=== PATIENT | female | born 1985 | race American Indian/Alaskan Native ===

== ENCOUNTER 2020-04-03 11:07 | Emergency (ER) | payer MEDICAID ==
[2020-04-03] MEDS ORDERED: HALOPERIDOL LACTATE 5 MG/1 ML INJ IM STA (11:34)
[2020-04-03] MEDS ORDERED: diphenhydrAMINE 50 MG/ML VIAL IM ONE (11:34)
[2020-04-03] MEDS ORDERED: LORazepam 2 MG/ML VIAL IM STA (11:34)
--- NOTE | 2020-04-03 11:35 | Emergency Department Report ---
<JOSUE MAHAJAN - Last Filed: 04/03/20 19:05> ED General Adult HPI - General Chief complaint: Psych Stated complaint: BEHAVIORAL /PSYCH EPISODE Time Seen by Provider: 04/03/20 11:24 - Related Data Allergies Allergy/AdvReac Type Severity Reaction Status Date / Time red dye Allergy Swelling Verified 04/03/20 11:34 ED Course - Reevaluation(s) Reevaluation #3: 04/03/20 19:05 Nurse Jocy came to me to evaluate patient because now her lips are swollen at removing patient's mask. Aunt at the bedside and states that lips were not previously swollen. Patient did receive IM medications for sedation as noted in the chart. On examination patient appears to have superficial bite wounds to the inner upper lip as well as the inner lower lip with some mild blood noted on a cup when she was drinking water. Patient does not have any loose or missing teeth. There is not any active bleeding. There is not any tongue swelling or tongue laceration. There is not any posterior pharyngeal swelling, difficulty swallowing, or stridor. I suspect that patient's lips are swollen secondary to traumatic injury and accidental biting. Nurse instructed to continue to monitor. Patient is drinking water without difficulty, denies pain, and has no shortness of breath. ED Medical Decision Making - Lab Data Result diagrams: 04/03/20 11:42 04/03/20 11:42 ED Disposition Clinical Impression: Borderline developmental delay, Anemia, Behavior concern in adult Disposition: DC-01 TO HOME OR SELFCARE Condition: Good Referrals: [facility] [Other] - 3-5 Days <AVELINO MARIEE - Last Filed: 04/04/20 06:36> ED General Adult HPI - General PUI?: No Source: patient, family, EMS (Verbal report received from emergency medical services. EMS documentation not available at time of chart dictation ), RN notes reviewed, old records reviewed Mode of arrival: Ambulatory Limitations: Other (Developmental delay.) - History of Present Illness Initial comments: The patient was evaluated in the emergency department for symptoms described in the history of present illness. He/she was evaluated in the context of the global COVID-19 pandemic, which necessitated consideration that the patient might be at risk for infection with the virus that causes COVID-19. Institutional protocols and algorithms that pertain to the evaluation of patients at risk for COVID-19 are in a state of rapid change based on information released by regulatory bodies including the CDC and federal and state organizations. These policies and algorithms were followed during the patient's care in the emergency department. Please note that these policies, procedures and recommendations changed on a rapid basis. During the entire history and physical examination, I am professor of historical theology and escorted by nurse JOCY GRUBER Patient is a 34-year-old female who is not known to myself previously. The patient is accompanied by her aunt who provides most of the history. The patient has a history of developmental delay. She has an outpatient primary care doctor, therapist and psychiatrist. The patient is brought to the hospital by her aunt, who also serves as the patient's primary caregiver, for psychiatric evaluation. Patient has been somewhat anxious, agitated, behaving erratically, and not sleeping well. As per the aunt, no fever, no nausea, no vomiting, no urinary frequency, no cough, no exposure to Covid, no change in taste or smell, no access to guns or firearms, all medications at home are locked away, and there is no possibility of overdose. Patient herself is typically alert only to name, and requires assistance from the patient's aunt for assistance with activities of daily living, management of finances, etc. The patient is a poor historian, and not able to really elaborate on symptoms. It does not appear that the patient has had respite care or crisis evaluation recently. Patient disorganized, developmentally delayed, and is not able to describe the qualitative nature of her symptoms, exacerbating factors, relieving factors, or aggravating factors. Her aunt gave verbal consent for medication with haloperidol, Ativan and diphenhydramine to facilitate acquisition of time sensitive diagnostic tests, and calm the patient down, as she was markedly anxious and agitated here in the emergency room. -: days(s) Radiation: other Quality: other Consistency: other Improves with: other Worsens with: other Associated Symptoms: other ED Review of Systems ROS: Stated complaint: BEHAVIORAL /PSYCH EPISODE Other details as noted in HPI Comment: Review of systems as per aunt Constitutional: denies: fever Eyes: denies: eye discharge Respiratory: denies: cough Cardiovascular: denies: syncope Gastrointestinal: denies: nausea, vomiting, constipation Genitourinary: denies: dysuria Psychiatric: anxiety ED Past Medical Hx - Past Medical History Previous Medical History?: Yes Hx Psychiatric Treatment: Yes (borderline schizophrenia) Additional medical history: autism - Social History Smoking Status: Never Smoker Substance Use Type: None ED Physical Exam - General Limitations: Other (Disorganized behavior, agitation) General appearance: alert, anxious, in distress - Head Head exam: Present: atraumatic, normocephalic - Eye Eye exam: Present: normal appearance, PERRL, EOMI, other (Right-sided exotropic strabismus. Aunt reports this is chronic). Absent: nystagmus - ENT ENT exam: Present: normal exam, normal orophraynx, mucous membranes moist, normal external ear exam - Neck Neck exam: Present: normal inspection, full ROM. Absent: tenderness, meningismus - Respiratory Respiratory exam: Present: normal lung sounds bilaterally. Absent: respiratory distress, wheezes, rales, rhonchi, stridor, decreased breath sounds - Cardiovascular Cardiovascular Exam: Present: normal rhythm, tachycardia, normal heart sounds. Absent: systolic murmur, diastolic murmur, rubs, gallop - GI/Abdominal GI/Abdominal exam: Present: soft. Absent: distended, tenderness, guarding, rebound, rigid, pulsatile mass - Extremities Exam Extremities exam: Present: normal inspection, full ROM, other (2+ pulses noted in the bilateral upper and lower extremities. There is no palpable cord. negative Homans sign. Muscular compartments are soft. The pelvis is stable.). Absent: pedal edema, calf tenderness - Back Exam Back exam: Present: normal inspection, full ROM. Absent: tenderness, CVA ten derness (R), CVA tenderness (L), paraspinal tenderness, vertebral tenderness - Neurological Exam Neurological exam: Present: alert (Patient is alert to name. Patient will follow some, but not all commands.), other (There is no facial droop. The tongue is midline. The extraocular movements are intact bilaterally. 5 out of 5 strength in 4 extremities.) - Psychiatric Psychiatric exam: Present: anxious - Skin Skin exam: Present: warm, dry, intact, normal color. Absent: rash ED Course Vital Signs 04/03/20 04/03/20 04/03/20 11:21 11:45 11:55 Temperature 98.6 F Pulse Rate 121 H 113 H Respiratory 18 22 Rate Blood Pressure 164/102 129/86 O2 Sat by Pulse 100 100 100 Oximetry 04/03/20 04/03/20 04/03/20 12:00 13:00 14:00 Temperature Pulse Rate 105 H 102 H 101 H Respiratory 19 16 15 Rate Blood Pressure 133/81 109/57 109/58 O2 Sat by Pulse 98 100 98 Oximetry 04/03/20 04/03/20 04/03/20 15:00 16:00 17:00 Temperature Pulse Rate 99 H 127 H Respiratory 12 20 Rate Blood Pressure 125/76 119/70 O2 Sat by Pulse 100 100 Oximetry 04/03/20 04/03/20 18:00 19:00 Temperature Pulse Rate 108 H 114 H Respiratory 18 25 H Rate Blood Pressure 125/66 137/84 O2 Sat by Pulse 100 100 Oximetry - Reevaluation(s) Reevaluation #1: 04/03/20 12:30 Differential diagnosis, including but not limited to: Developmental delay, need for respite care, , urinary tract infection, medical screening, clearance for psychiatric placement and evaluation, medical screening/clearance for respite care Assessment and plan: 34-year-old female, who was afebrile, with reassuring vital signs, markedly improved tachycardia, fairly unremarkable physical exam, brought here essentially for behavioral issues. As per her aunt, no fever, no cough, no nausea, vomiting or diarrhea. Patient has a history of developmental and cognitive delay, therefore, she is unlikely to benefit from involuntary confinement 1013, or psychiatric inpatient hospitalization. She may benefit from outpatient respite care. Mental health consultation is requested, urinalysis pending at this time. Patient's aunt reports that the patient is not , and she further reports the patient has not delivered or given within the past 6 months. Patient's aunt also reports typical heavy menstruation. Also reports no hematemesis, bright red blood per rectum. 04/03/20 12:47 04/03/20 14:04 Laboratory studies are reviewed and appreciated. Anemia is likely chronic, given history of chronic heavy menstruation. I have discussed the patient's laboratory studies with the patient's aunt, who verbalized understanding. Wendy teague does not have an emergent medical condition at this time that would preclude psychiatric/social evaluation, consultation and placement. As per our psychiatric assessors recommendations: Mental health assessment has been requested by Dr. Mariee. The pt has documented developmental disabilities; therefore, team of assessors from [facility] who specializes in assessing individuals with DD will be dispatched to evaluate the patient. Spoke to Nashshanebambi ( ) who has put in the request and will dispatch the team. The guardian/aunt will need to remain with the patient. The pt can not be in restraints and must be awake or able to be awoken when the team arrives in order for the pt to be evaluated. After the team assesses the pt, please document the recommendations and provide to mental health weaving teacher Tere at [phone]. If the team recommends outpatient follow up the team will complete a safety plan and provide referrals for the patient. If they recommend inpatient treatment then the process for placement will begin. Please advise Dr. Mariee of their recommendations as well and place any paperwork given on the pt's chart. Therefore, final disposition pending the aforementioned intervention. Reevaluation #2: 04/03/20 15:17 Mobile crisis team is currently seeing and evaluating the patient. They have essentially interviewed the patient's aunt the patient is currently very sleepy. They are not able to interview the patient herself. The patient is reportedly her own legal guardian. They will come back to reevaluate the patient when she is more awake. Patient remains medically suitable for disposition as an outpatient. ED Medical Decision Making - Lab Data Result diagrams: 04/03/20 11:42 04/03/20 11:42 Vital Signs 04/03/20 04/03/20 04/03/20 11:21 11:45 11:55 Temperature 98.6 F Pulse Rate 121 H 113 H Respiratory 18 22 Rate Blood Pressure 164/102 129/86 O2 Sat by Pulse 100 100 100 Oximetry 04/03/20 12:00 Temperature Pulse Rate 105 H Respiratory 19 Rate Blood Pressure 133/81 O2 Sat by Pulse 98 Oximetry Lab Results 04/03/20 04/03/20 04/03/20 Range/Units 11:42 11:42 11:42 Hgb 8.5 L (10.1-14.3) gm/dl Hct 27.8 L (30.3-42.9) % Plt Count 465 H (140-440) K/mm3 Sodium 135 L (137-145) mmol/L Potassium 3.9 (3.6-5.0) mmol/L Chloride 99.1 (98-107) mmol/L Carbon Dioxide 21 L (22-30) mmol/L Anion Gap 19 mmol/L BUN 9 (7-17) mg/dL Creatinine 0.5 L (0.6-1.2) mg/dL Estimated GFR > 60 ml/min BUN/Creatinine Ratio 18 % Glucose 107 H (65-100) mg/dL Calcium 9.8 (8.4-10.2) mg/dL Total Bilirubin 0.30 (0.1-1.2) mg/dL AST 16 (5-40) units/L ALT 14 (7-56) units/L Alkaline Phosphatase 90 (35-129) units/L Total Creatine Kinase 81 (30-135) units/L Total Protein 9.1 H (6.3-8.2) g/dL Albumin 4.8 (3.9-5) g/dL Albumin/Globulin Ratio 1.1 % HCG, Quant (0-4) mIU/mL Salicylates < 0.3 L (2.8-20.0) mg/dL Acetaminophen (10.0-30.0) ug/mL Plasma/Serum Alcohol (0-0.07) % 04/03/20 04/03/20 04/03/20 Range/Units 11:42 11:42 11:42 Hgb (10.1-14.3) gm/dl Hct (30.3-42.9) % Plt Count (140-440) K/mm3 Sodium (137-145) mmol/L Potassium (3.6-5.0) mmol/L Chloride (98-107) mmol/L Carbon Dioxide (22-30) mmol/L Anion Gap mmol/L BUN (7-17) mg/dL Creatinine (0.6-1.2) mg/dL Estimated GFR ml/min BUN/Creatinine Ratio % Glucose (65-100) mg/dL Calcium (8.4-10.2) mg/dL Total Bilirubin (0.1-1.2) mg/dL AST (5-40) units/L ALT (7-56) units/L Alkaline Phosphatase (35-129) units/L Total Creatine Kinase (30-135) units/L Total Protein (6.3-8.2) g/dL Albumin (3.9-5) g/dL Albumin/Globulin Ratio % HCG, Quant 0.583 (0-4) mIU/mL Salicylates (2.8-20.0) mg/dL Acetaminophen 5.0 L (10.0-30.0) ug/mL Plasma/Serum Alcohol < 0.01 (0-0.07) % - EKG Data -: EKG Interpreted by Me EKG shows normal: sinus rhythm Rate: tachycardia - EKG Data When compared to previous EKG there are: previous EKG unavailable 04/03/20 12:30 Sinus rhythm, tachycardia, 103 bpm, normal axis, QTC 445 ms, high left v entricular voltage. This EKG is abnormal. The EKG is not a STEMI. There is no prior for comparison. - Radiology Data Radiology results: pending Critical care attestation.: If time is entered above; I have spent that time in minutes in the direct care of this critically ill patient, excluding procedure time. ED Disposition Is pt being admited?: No Does the pt Need Aspirin: No
[2020-04-03 12:05] LABS: Hematocrit 27.8 % (30.3-42.9); Hemoglobin 8.5 gm/dl (10.1-14.3)
[2020-04-03 12:22] LABS: Alanine Aminotransferase 14 units/L (7-56); Albumin 4.8 g/dL (3.9-5); Blood Urea Nitrogen 9 mg/dL (7-17); Calcium 9.8 mg/dL (8.4-10.2); Hemolysis Index 1
[2020-04-03 12:23] LABS: BUN/Creatinine Ratio 18
[2020-04-03 13:20] LABS: Bilirubin,Urine NEG (Negative); Blood,Urine NEG (Negative); Color,Urine Yellow (Yellow); Mucus,Urine FEW /HPF; Urobilinogen,Urine < 2.0 mg/dL (<2.0); WBC,Urine < 1.0 /HPF (0.0-6.0)
[2020-04-03] MEDS ORDERED: ONDANSETRON 4 MG ODT TAB PO PRN (15:18)
[2020-04-03] MEDS ORDERED: ACETAMINOPHEN 325 MG TAB PO PRN (15:18)
[2020-04-03] MEDS ORDERED: ALBUTEROL 2.5 MG/3 ML NEBU IH PRN (15:18)
[2020-04-03 19:24] VITALS: BP 137/84
== END 2020-04-03 20:52 | disposition home or self-care (01) ==
LOC: ED 11:07
DX: D64.9 Anemia, unspecified (principal); Z91.041 Radiographic dye allergy status
CPT/HCPCS: 36415; 80053; 81001; 82550; 84443; 84702; 85014; 85018; 85049; 93005; 96372; 99284; J1200; J1630; J2060; 80320; G0480